=== PATIENT | female | born 1980 | race Caucasian/White ===

== ENCOUNTER → 2016-07-13 | Outpatient (CLI) | payer OTHER ==
[~2016-07-13] MED LIST: B-COCAP2 PO; CHOL20007 PO; CLTP PO; DPPI400; GLAT1INJ INJ; LEVOTAB2 PO; MELATAB2 PO; MULT-506 PO; PHEN-876 PO; RIZA10TA18 PO; SULF400T7 PO; ZVR/400 PO
[2016-07-13 09:39] LABS: CALCIUM 8.8 mg/dl (8.5-10.1)
[2016-07-16 15:22] LABS: ILGF1 Z SCORE FEMALE -0.3 SD (-2.0 - +2.0); INSULIN LIKE GROWTH FACTOR-I 123 ng/mL (53-331)
== END | disposition home or self-care (01) ==
LOC: C.LAB 07:04
PROVIDERS: ATTEND Internal Medicine Endocrinology, Diabetes & Metabolism
DX: D49.7 Neoplasm of unspecified behavior of endocrine glands and other parts of nervous system (principal); N20.0 Calculus of kidney; I10 Essential (primary) hypertension

== ENCOUNTER → 2016-07-15 | Outpatient (CLI) | payer OTHER ==
--- NOTE | 2016-07-15 09:27 | DIAGNOSTIC IMAGING REPORT ---
THYROID ULTRASOUND HISTORY: Thyroid nodularity E04.2 Multiple thyroid nodules COMPARISON: None. FINDINGS: Right lobe: Maximum dimension 5.9 cm. Several nodules measuring up to 9 mm. Left lobe: Maximum dimension 6.2 cm. Complex partially cystic nodule upper pole measuring 2 x 1.8 cm. Isthmus: No nodules. IMPRESSION: Multinodular thyroid. Dominant nodule upper pole left thyroid considered complex. Fine-needle aspiration is suggested. Electronically signed by: Chaim Rachel M.D. 07/15/2016 9:26 AM Dictated Date/Time: 07/15/2016 9:22 AM
== END | disposition home or self-care (01) ==
LOC: C.ULTR 08:25
PROVIDERS: ATTEND Internal Medicine Endocrinology, Diabetes & Metabolism
DX: E04.2 Nontoxic multinodular goiter (principal)

== ENCOUNTER → 2016-07-16 | Outpatient (CLI) | payer OTHER ==
[2016-07-20 17:37] LABS: METANEPHRINE 133 mcg/24 h (36-190); NORMETANEPHRINE UR 223 mcg/24 h (35-482); TOTAL METANEPHRINE 356 mcg/24 h (115-695)
== END | disposition home or self-care (01) ==
LOC: C.LAB 09:58
PROVIDERS: ATTEND Internal Medicine Endocrinology, Diabetes & Metabolism
DX: I10 Essential (primary) hypertension (principal)

== ENCOUNTER → 2016-07-23 | Outpatient (CLI) | payer OTHER ==
--- NOTE | 2016-07-23 11:22 | Discharge Instructions ---
Discharge Instructions Procedure Procedure Date: Jul 23, 2016. Reason for visit: R Lobe Thyroid,U/S Was Done 07/15/16. Discharge Discharge Date: Jul 23, 2016. Discharge Diagnosis: s/p thyroid nodule FNA x 2 Instructions Activity Recommendations: No limitations Return to School/Work: no limitations Recommended Home Diet: No Limitations Provider Instructions: ACTIVITY RECOMMENDATIONS: * Rest today. * Resume regular activity in one day. MEDICATIONS: * May take Tylenol or Ibuprofen as needed for pain. DIET: * Resume previous diet. SPECIAL CARE INSTRUCTIONS: Call your doctor if: * Temperature above 101 degrees F. * Pain not relieved by pain medicine ordered. * Increased drainage or redness from incision. * Notify your doctor with any questions or concerns. Call your doctor or go to the nearest Emergency Department if you experience: * Increased chest pain or shortness of breath. FOLLOW UP VISIT: Follow-up with Referring Physician as scheduled. Allergies Coded Allergies: No Known Allergies (Verified Allergy, Unknown, 05/31/02) Uncoded Allergies: N (Allergy, Unknown, 05/31/02) NKA (Allergy, Unknown, 05/31/02) Juan Jin Recommendations: Call your doctor if: * Temperature above 101 degrees * Pain not relieved by pain medicine ordered * There is increased drainage or redness from any incision * You have any unanswered questions or concerns. Your Doctors Instructions noted above were prepared by provider Huber Chowdhury. Patient Signature Section: Patient Instructions Signature Page Nereida Arzola Patient (or Guardian) Signature/Date: I have read and understand the instructions given to me by my caregivers. Caregiver/RN/Doctor Signature/Date: The above-named patient and/or guardian has received patient instructions on this date. + Original Patient Signature Page (only) stays with chart. Please make copy for patient.
--- NOTE | 2016-07-23 11:39 | DIAGNOSTIC IMAGING REPORT ---
ULTRASOUND GUIDED FINE NEEDLE ASPIRATION OF RIGHT AND LEFT LOBE THYROID NODULES CLINICAL HISTORY: Thyroid nodules. COMPARISON STUDY: Ultrasound of the thyroid gland July 15, 2016. PROCEDURE: Sonography of the thyroid gland demonstrated the 1.1 cm solid lesion within the midpole of the right lobe as well as the 2.1 cm cystic lesion within the upper pole of the left lobe. These 2 nodules were targeted for fine needle aspiration. The procedure, risks and benefits were discussed with the patient including the risk of bleeding, infection and injury to adjacent structures. The patient agreed to the procedure and informed written consent was obtained. The procedure was performed by Dr. Chowdhury following a timeout. Skin of the neck was prepped and draped in sterile fashion and local anesthesia was achieved with 1% lidocaine. Under direct ultrasound guidance, 2 25-gauge fine needle aspirations of the bilateral thyroid nodules were performed. A total 4 passes was performed. The patient tolerated the procedure well and no immediate complications were evident. Samples were deemed preliminarily adequate by pathology. IMPRESSION: Ultrasound guided fine needle aspiration of the right and left lobe thyroid nodules. Electronically signed by: Huber Chowdhury M.D. 07/23/2016 11:37 AM Dictated Date/Time: 07/23/2016 11:34 AM
== END | disposition home or self-care (01) ==
LOC: C.ULTR 10:35
PROVIDERS: ATTEND Internal Medicine Endocrinology, Diabetes & Metabolism
DX: E04.1 Nontoxic single thyroid nodule (principal)

== ENCOUNTER 2016-09-01 09:46 | Inpatient (IN) | payer OTHER ==
[2016-08-13 08:33] VITALS: BMI 21.0
--- NOTE | 2016-08-13 09:04 | PAT Medication Instructions ---
Service Date Aug 13, 2016. Current Home Medication List Acyclovir (Acyclovir), 1 TAB PO UD PRN for PRN Cholecalciferol (Vitamin D3), 5,000 UNITS PO QAM Glatiramer Acetate (Copaxone), 1 DOSE INJ 3XWK Levonorgestrel & Eth Estradiol (Aviane), 1 TAB PO QAM Melatonin (Melatonin Maximum Strengt), 10 MG PO HS PRN for Insomnia Rizatriptan Benzoate (Maxalt), 10 MG PO PRN Medication Instructions For Your Scheduled Surgery - Continue as directed: Glatiramer Acetate (Copaxone), 1 DOSE INJ 3XWK - Hold the following medications the morning of surgery: Cholecalciferol (Vitamin D3), 5,000 UNITS PO QAM - Take the following medications the morning of surgery with a sip of water OTHERWISE NOTHING TO EAT OR DRINK AFTER MIDNIGHT: Levonorgestrel & Eth Estradiol (Aviane), 1 TAB PO QAM (okay to continue per surgeon) Acyclovir (Acyclovir), 1 TAB PO UD PRN for PRN Rizatriptan Benzoate (Maxalt), 10 MG PO PRN - Take the following medications as scheduled the night before surgery: Melatonin (Melatonin Maximum Strengt), 10 MG PO HS PRN for Insomnia If you have any questions please call us at [phone] or [phone] or [phone]
[2016-08-13 09:26] LABS: HEMATOCRIT 39.2 % (37-47); MEAN CELL VOLUME 86.3 fL (80-100); MEAN CORPUSCULAR HEMOGLOBIN 28.9 pg (25-34); MEAN CORPUSCULAR HGB CONC 33.4 g/dl (32-36); MEAN PLATELET VOLUME 9.4 fL (7.4-10.4); PLATELET COUNT 287 K/uL (130-400); RED BLOOD COUNT 4.54 M/uL (4.2-5.4); WHITE BLOOD COUNT 5.93 K/uL (4.8-10.8)
[2016-08-13 09:45] LABS: BASO % 0.3 %; BASO ABS # 0.02 K/uL (0-0.2); COMPLETE YES; EOS % 3.4 %; IG% 0.2 %; LYMPH % 25.8 %; LYMPH ABS # 1.53 K/uL (1.2-3.4); MONO % 7.6 %; NEUT % 62.7 %
[2016-08-13 10:23] LABS: BUN/CREATININE RATIO 11.8 (10-20); CALCIUM 8.7 mg/dl (8.5-10.1); CREATININE 1.1 mg/dl (0.60-1.20); POTASSIUM 3.9 mmol/L (3.5-5.1)
[2016-09-01] VITALS (9 sets, daily range): BP systolic 127–157; BP diastolic 81–94; PULSE 52–84; TEMP 36.5–37; O2SAT 96–99; Ht 170.2 cm; Wt 62.1 kg
[~2016-09-01] VITALS: Ht 170.2 cm; Wt 62.1 kg
[~2016-09-01 09:46] MED LIST changes: -B-COCAP2 PO; +CEFAZOLIN 2000 MG/60 ML D5W IV SCH; -CLTP PO; -DPPI400; +LACTATED RINGER'S 1000ML 1,000 ML IV SCH; -MULT-506 PO
[2016-09-01] MEDS ORDERED: FENTANYL CITRATE INJ 50 MCG/1 ML 2 ML VIAL ONE ×3 (11:42→16:09)
[2016-09-01] MEDS ORDERED: ONDANSETRON INJ 2 MG/ML 2 ML VIAL ONE ×2 (11:42→15:26)
[2016-09-01] MEDS ORDERED: MIDAZOLAM HCL 1 MG/ML 2ML VIAL ONE (11:42)
[2016-09-01] MEDS ORDERED: DEXAMETHASONE SOD INJ 4 MG/ML VIAL ONE (11:42)
[2016-09-01] MEDS ORDERED: PROPOFOL IV EMULSION 10 MG/ML 20 ML VIAL IV ONE ×2 (11:42→14:04)
[2016-09-01] MEDS ORDERED: LIDOCAINE HCL 2% 2 ML VIAL (20MG/ML) ONE (11:42)
[2016-09-01] MEDS ORDERED: THROMBIN 5000 UNITS KIT ONE (12:08)
[2016-09-01] MEDS ORDERED: BACITRACIN OINT 15 GM TUBE ONE (12:08)
[2016-09-01] MEDS ORDERED: LIDOCAINE/EPINEPHRINE 1% 20 ML VIAL ONE (12:08)
--- NOTE | 2016-09-01 12:47 | History & Physical Bridge Note ---
H&P Re-Evaluation Bridge Note: I have examined the patient, reviewed the History & Physical and in the interval since the performance of the History & Physical I have noted the following changes of clinical significance: No changes noted
[2016-09-01] MEDS ORDERED: SUCCINYLCHOLINE CHLORIDE 20 MG/ML 10 ML VIAL IV ONE (13:21)
[2016-09-01] MEDS ORDERED: SURGICEL ABSORB HEMOSTAT 2IN X 14IN TOP ONE (14:24)
[2016-09-01] MEDS ORDERED: LACTATED RINGER'S 1000ML 1,000 ML IV SCH (15:33)
--- NOTE | 2016-09-01 15:33 | [facility] Operative Report ---
Operative Report Operative Date September 01, 2016. Pre-Operative Diagnosis Papillary Thyroid Cancer Post-Operative Diagnosis SAME Procedure(s) Performed TOTAL THYROIDECTOMY Surgeon DR Khoa Abdi Manager Documentation Surgeon(s) Kat Jaramillo PA-C Estimated Blood Loss 50 ml Findings 1. MEDIUM SIZED MULTINODULAR GOITER Specimens A: Total thyroid (double stitch right superior pole, single stitch left superior pole). I attest to the content of the Intraoperative Record and any orders documented therein. Any exceptions are noted below.
[2016-09-01] MEDS ORDERED: ACYCLOVIR 400 MG TAB PO PRN (15:45)
[2016-09-01] MEDS ORDERED: RIZATRIPTAN BENZOATE 10 MG TAB PO PRN (15:45)
[2016-09-01] MEDS ORDERED: NON-FORMULARY MEDICATION (Melatonin (Melatonin Maximum Strengt) 10 MG) PO PRN (15:45)
[2016-09-01] MEDS ORDERED: ONDANSETRON INJ 2 MG/ML 2 ML VIAL IV PRN ×2 (15:45→16:15)
[2016-09-01] MEDS ORDERED: EpHEDrine SULFATE INJ 50 MG/ML AMP IV PRN (16:15)
[2016-09-01] MEDS ORDERED: LABETALOL HCL IV 5 MG/ML 20ML IV PRN (16:15)
[2016-09-01] MEDS ORDERED: MEPERIDINE HCL 25 MG/ML CARP IV PRN (16:15)
[2016-09-01] MEDS ORDERED: ATROPINE SULFATE 0.1 MG/ML 5ML SYR IV PRN (16:15)
[2016-09-01] MEDS ORDERED: FENTANYL CITRATE INJ 50 MCG/1 ML 2 ML VIAL IV PRN (16:15)
[2016-09-01] MEDS: HYDROmorphone INJ 1 MG/ML SYR IV PRN ×4 (16:22→17:21)
--- NOTE | 2016-09-01 16:51 | Anesthesiology Progress Note ---
Anesthesia Post Op Note Date & Time September 01, 2016 at 16:52 Vital Signs Pain Intensity: 3 Vital Signs Past 12 Hours Date Time Temp Pulse Resp B/P Pulse Ox O2 Delivery O2 Flow Rate FiO2 09/01/16 16:40 36.5 66 14 134/90 98 Nasal Cannula 2 09/01/16 16:30 74 22 150/88 98 Nasal Cannula 2 09/01/16 16:20 90 15 135/88 98 Mask 10 09/01/16 16:10 82 22 152/96 100 Mask 10 09/01/16 16:03 37.0 92 16 117/89 100 Mask 10 09/01/16 10:20 36.7 78 18 135/90 97 Room Air Notes Mental Status: alert / awake / arousable, participated in evaluation Pt Amnestic to Procedure: Yes Nausea / Vomiting: adequately controlled Pain: adequately controlled Airway Patency, RR, SpO2: stable & adequate BP & HR: stable & adequate Hydration State: stable & adequate Anesthetic Complications: no major complications apparent
--- NOTE | 2016-09-01 16:54 | OPERATIVE REPORT ---
DATE OF OPERATION: 09/01/2016 PREOPERATIVE DIAGNOSIS: Right papillary thyroid carcinoma. POSTOPERATIVE DIAGNOSIS: Right papillary thyroid carcinoma. PROCEDURE: Total thyroidectomy. SURGEON: Dr. Abdi. ACCOUNT GENERAL MANAGER: Ella. ANESTHESIA: General endotracheal anesthesia with nerve integrity monitor endotracheal tube. ESTIMATED BLOOD LOSS: 15 mL. FINDINGS: 1. Medium size multinodular goiter with multiple nodules bilaterally. SPECIMENS: Total thyroidectomy for permanent pathologic assessment. DRAINS: None. COMPLICATIONS: None. INDICATIONS FOR THE PROCEDURE: The patient is a 35-year-old female who was found to have a multinodular goiter on the thyroid ultrasound and had both left and right nodules. She had fine needle aspiration biopsy of suspicious bilateral thyroid nodules and on the right side in the midpole there was approximately 1 cm nodule that came back suspicious for papillary thyroid carcinoma. She presents for the above-mentioned procedure on an inpatient elective basis. DESCRIPTION OF PROCEDURE: After informed consent had been obtained from the patient, the patient was wheeled to the operating room and placed on the operating table in the supine position. Monitors were placed. After induction of general endotracheal anesthesia with a nerve integrity monitor endotracheal tube, the patient's head and neck were gently extended. A marking pen was used to outline the planned 6 cm incision in a natural skin crease 2 fingerbreadths above the level of clavicles. A total of 3 mL of 1% lidocaine with 1:100,000 epinephrine was used to inject the skin and subcutaneous tissues overlying the planned incision site. The skin of the neck and chest were then prepped and draped in the usual sterile fashion. A #15 scalpel was then used to make the incision through the skin, subcutaneous tissue, and platysma. Subplatysmal flaps were raised superiorly to the level of thyroid notch and inferiorly to the level of clavicles. The median raphe of the strap muscles was divided using Bovie electrocautery. The strap muscles were retracted laterally and the right thyroid lobe was first addressed. The middle thyroid vein as well as superior and inferior thyroid vascular pedicles were divided adjacent to the thyroid capsule using Harmonic scalpel. Dissection was carried lateral to medial with care to identify and preserve the right recurrent laryngeal nerve as well as superior and inferior parathyroid candidates. The left side was then addressed in a similar fashion. The thyroid gland was then from the trachea at Velasquez's ligament with a Harmonic scalpel. Orienting sutures were placed on the total thyroidectomy specimen, which was sent off for permanent pathological assessment. Both recurrent laryngeal nerves stimulated after removal of the thyroidectomy specimen. The wound was then copiously irrigated and suctioned. Bipolar electrocautery was used to achieve adequate hemostasis. Hemostasis was confirmed with a Valsalva maneuver. Small pieces of Surgicel followed by topical spray thrombin were placed in the bilateral tracheoesophageal grooves for added hemostasis. The strap muscle was then reapproximated in the midline using a simple running interlocked 3-0 Vicryl suture. The platysma was then closed with several deep 4-0 Monocryl sutures. The skin was then closed with a simple running subcuticular 5-0 Monocryl suture. The incision was cleansed and dried. Dermabond was applied to the incision. This marked the end of the case. The patient tolerated the procedure well and there were no apparent complications. The patient was extubated and transferred to the recovery room in stable condition. I attest to the content of the Intraoperative Record and any orders documented therein. Any exceptio ns are noted below.
[2016-09-01] MEDS: HYDROCODONE/ACETAMOPHEN 5/325MG TAB PO PRN (20:53)
[2016-09-01 22:09] LABS: CALCIUM 7.8 mg/dl (8.5-10.1); MAGNESIUM 2.2 mg/dl (1.8-2.4); PHOSPHORUS 3.3 mg/dl (2.5-4.9)
[2016-09-01] MEDS ORDERED: NURSING VERBAL MED ORDER ONE (22:30)
[2016-09-01] MEDS: CALCIUM 600MG + VIT D 400 IU TAB PO SCH ×2 (22:39→23:54)
[2016-09-02 03:03] VITALS: BP 133/83; PULSE 62; TEMP 37.1; O2SAT 96
[2016-09-02] MEDS: HYDROCODONE/ACETAMOPHEN 5/325MG TAB PO PRN ×2 (03:09→10:33)
[2016-09-02 03:17] LABS: MAGNESIUM 2.2 mg/dl (1.8-2.4)
[2016-09-02] MEDS ORDERED: LEVOTHYROXINE 100 MCG TAB PO SCH (06:00)
[2016-09-02] MEDS: CALCIUM 600MG + VIT D 400 IU TAB PO SCH (06:02)
--- NOTE | 2016-09-02 07:43 | ENT PROGRESS NOTE ---
DATE: 09/02/2016 OTOLARYNGOLOGY HEAD AND NECK SURGERY PROGRESS NOTE HOSPITAL COURSE: Postoperative day #1 status post total thyroidectomy for right papillary thyroid carcinoma. She denies any perioral or digital numbness or paresthesias. She denies any muscle cramps or spasms. Her first calcium yesterday was mildly low at 7.8 and she was started on Os-Kee D with an increase in her calcium to 9.0. She is doing well so far. She is afebrile and her vital signs are stable. She has been intermittently mildly hypertensive. She has a normal voice and her thyroidectomy incision is clean, dry and intact with Dermabond in place and mild fluid collection, but no significant hematoma. There is no ecchymosis overlying her skin. I would like to check her calcium at least 1 or 2 more times before discharging her. I will likely send her home on an Os-Kee D taper. Disposition is dependent on her laboratory examinations.
[2016-09-02 07:53] VITALS: BP 128/84; PULSE 64; TEMP 37
[2016-09-02 07:56] VITALS: O2SAT 98
--- NOTE | 2016-09-02 08:05 | Anesthesiology Progress Note ---
Anesthesia Post Op Note Date & Time September 02, 2016 at 08:05 Vital Signs Pain Intensity: 4.0 Vital Signs Past 12 Hours Date Time Temp Pulse Resp B/P Pulse Ox O2 Delivery O2 Flow Rate FiO2 09/02/16 07:56 98 Room Air 09/02/16 07:53 37.0 64 20 128/84 09/02/16 03:03 37.1 62 16 133/83 96 Room Air 09/02/16 00:00 Room Air 09/01/16 23:00 36.6 75 16 134/81 96 Room Air 09/01/16 22:03 52 142/84 97 Room Air 09/01/16 20:48 36.7 53 16 157/94 99 Room Air Notes Mental Status: alert / awake / arousable, participated in evaluation Pt Amnestic to Procedure: Yes Nausea / Vomiting: adequately controlled Pain: adequately controlled Airway Patency, RR, SpO2: stable & adequate BP & HR: stable & adequate Hydration State: stable & adequate Anesthetic Complications: no major complications apparent
[2016-09-02 08:17] VITALS: BP 128/84; PULSE 54; TEMP 37; O2SAT 98
[2016-09-02] MEDS ORDERED: CHOLECALCIFEROL 1000 INTER.UNIT TAB PO SCH (09:00)
[2016-09-02 09:39] LABS: CALCIUM 8.9 mg/dl (8.5-10.1)
[2016-09-02 09:42] LABS: MAGNESIUM 2.1 mg/dl (1.8-2.4); PHOSPHORUS 3.1 mg/dl (2.5-4.9)
--- NOTE | 2016-09-02 10:11 | Discharge Instructions ---
Discharge Instructions Date of Service September 02, 2016. Admission Reason for Admission: Thyroid Cancer Discharge Discharge Diagnosis / Problem: SAME Discharge Goals Goal(s): Therapeutic intervention Activity Recommendations Activity Limitations: per Instructions/Follow-up section . Current Hospital Diet Patient's current hospital diet: Regular Diet Discharge Diet Recommended Diet: Regular Diet Procedures Procedures Performed: Total Thyroidectomy Pending Studies Studies pending at discharge: no Medical Emergencies . Who to Call and When: Medical Emergencies: If at any time you feel your situation is an emergency, please call 911 immediately. . Non-Emergent Contact Non-Emergency issues call your: Surgeon . . "Provider Documentation" section prepared by Khoa Abdi. . VTE Core Measure Inpt VTE Proph given/why not?: SCD's
--- NOTE | 2016-09-02 10:57 | DISCHARGE SUMMARY ---
DATE OF DISCHARGE: 09/02/2016. HOSPITAL COURSE: The patient is a 35-year-old female with FNA of a right thyroid nodule which suggested papillary thyroid carcinoma for which she underwent total thyroidectomy on 09/01/2016 with intraoperative findings of a medium sized multinodular goiter. Postoperatively her voice and swallowing were within normal limits. Her first calcium level was low at 7.8 and she was started on Os-Kee D and her calcium afterwards was normal at 9.0 and then 8.9 without any increase in her phosphorus. She was discharged to home on postoperative day #1 with recommendations of taking Os-Kee D 2 pills twice daily for 1 week followed by 2 pills 1 daily for 1 week. She is to follow up in office next Tuesday at which time I will order a calcium level. She should keep her incision dry for 1 week. She should keep ice on her neck as much as possible over the next week. She should not drive while she is on [place]. She was given prescriptions for [place] 5 mg/325 mg 1-2 tablet p.o. q. 4 hours p.r.n. with 40 tablets given as well as Synthroid 100 mcg daily. She also has a follow-up appointment with endocrinology in approximately 2 weeks and to keep that appointment. She is to call my office if she develops any numbness or tingling around her lips, fingers, or toes and/or any involuntary muscle spasms or cramps.
[2016-09-02 10:59] VITALS: BP 128/84; PULSE 54; TEMP 37; O2SAT 98
== END 2016-09-02 11:45 | disposition home or self-care (01) | DRG 627 ==
LOC: ENRESERVTM → ENRESERVDT → C.ACU 09:46 → C.MSW 15:37
PROC: 0GTH0ZZ Resection of Right Thyroid Gland Lobe, Open Approach (ICD-10-PCS; principal; 2016-09-01 11:15)
DX: C73 Malignant neoplasm of thyroid gland (principal); E04.2 Nontoxic multinodular goiter; G35 Multiple sclerosis; E55.9 Vitamin D deficiency, unspecified; I10 Essential (primary) hypertension; G43.109 Migraine with aura, not intractable, without status migrainosus; Z79.899 Other long term (current) drug therapy; Z87.891 Personal history of nicotine dependence; Z80.8 Family history of malignant neoplasm of other organs or systems

== ENCOUNTER → 2016-09-07 | Outpatient (CLI) | payer OTHER ==
[~2016-09-07] MED LIST changes: -CEFAZOLIN 2000 MG/60 ML D5W IV SCH; -LACTATED RINGER'S 1000ML 1,000 ML IV SCH; -PHEN-876 PO; -SULF400T7 PO
== END | disposition home or self-care (01) ==
LOC: C.LAB 08:38
DX: C73 Malignant neoplasm of thyroid gland (principal)

== ENCOUNTER → 2017-01-26 | Outpatient (CLI) | payer OTHER ==
--- NOTE | 2017-01-26 09:51 | DIAGNOSTIC IMAGING REPORT ---
SOFT TISS HEAD/NECK-THYROID CLINICAL HISTORY: 36 years-old Female presenting with E04.1, multinodular goiter status post thyroidectomy. TECHNIQUE: Real-time grayscale and color Doppler ultrasound imaging of the thyroid and base of the neck was performed. COMPARISON: 07/15/2016. FINDINGS: No evidence of residual or recurrent thyroid tissue or suspicious nodularity in the thyroidectomy bed. IMPRESSION: Expected postsurgical appearance status post thyroidectomy. Electronically signed by: Armando Mir M.D. 01/26/2017 9:50 AM Dictated Date/Time: 01/26/2017 9:37 AM
== END | disposition home or self-care (01) ==
LOC: C.ULTR 09:07
PROVIDERS: ATTEND Internal Medicine Endocrinology, Diabetes & Metabolism
DX: E04.1 Nontoxic single thyroid nodule (principal)

== ENCOUNTER → 2017-03-09 | Outpatient (CLI) | payer OTHER ==
[2017-03-09 11:27] LABS: THYROID STIMULATING HORMONE 1.48 uIu/ml (0.300-4.500)
[2017-03-11 15:06] LABS: THYROGLOBULIN 2.5 NG/ML (2.8-40.9)
== END | disposition home or self-care (01) ==
LOC: C.LAB1850 09:37
PROVIDERS: ATTEND Internal Medicine Endocrinology, Diabetes & Metabolism
DX: C73 Malignant neoplasm of thyroid gland (principal)

== ENCOUNTER → 2017-08-23 | Outpatient (CLI) | payer OTHER | END | disposition home or self-care (01) | LOC: C.LAB1850 11:26 | PROVIDERS: ATTEND Internal Medicine Endocrinology, Diabetes & Metabolism | DX: I10 Essential (primary) hypertension (principal); E04.2 Nontoxic multinodular goiter; C73 Malignant neoplasm of thyroid gland ==

== ENCOUNTER → 2017-11-23 | Outpatient (CLI) | payer OTHER | END | disposition home or self-care (01) | LOC: C.LAB1850 11:23 | PROVIDERS: ATTEND Internal Medicine Endocrinology, Diabetes & Metabolism | DX: E04.1 Nontoxic single thyroid nodule (principal); C73 Malignant neoplasm of thyroid gland ==